=== PATIENT | male | born 1975 | race Caucasian/White ===

== ENCOUNTER 2023-07-22 10:21 | Emergency (ER) | payer OTHER, SELFPAY ==
--- NOTE | ~2023-07-22 | XR_ITS ---
EXAMINATION: XR chest 2V 07/22/2023 11:05 INDICATION: Cough for 8 days PROCEDURE: 2 view chest COMPARISON: No prior studies for comparison. FINDINGS: The lungs are clear. The cardiomediastinal silhouette is within normal limits. There are no pleural effusions. There is no pneumothorax suspected. IMPRESSION: 1: NO ACUTE CARDIOPULMONARY DISEASE. Reviewed, dictated and finalized at location L. 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
[2023-07-22 10:40] VITALS: BP 169/82; PULSE 67; RESP 16; TEMP 36.7; O2SAT 96
--- NOTE | 2023-07-22 10:54 | ED.GENADULT ---
HPI - General Adult General Chief complaint: Upper Respiratory Infection Stated complaint: Cough/Chest Pain Source: patient Mode of arrival: ambulatory Limitations: no limitations History of Present Illness HPI narrative: Patient presents for evaluation of cough for the last 8 days. Cough is productive of yellow sputum. He has associated shortness of breath, hot flashes, sore throat, diarrhea and nausea. No objective fever, chills, vomiting. His currently has similar symptoms and was diagnosed with pneumonia. He has been taking [id number] cough and cold medication. He also took 2 tablets of his 's prednisone. He smokes 1 pack per day. He states he had a coughing episode that was severe earlier this morning. He coughs so her that he was confused where he was for a moment. He has had some pleuritic chest discomfort but no chest pain otherwise. Related Data Allergies Allergy/AdvReac Type Severity Reaction Status Date / Time No Known Allergies Allergy Unverified 01/12/18 11:28 Review of Systems Review of Systems: CONSTITUTIONAL: Reports hot flashes. Denies fever, chills, or sweats. EYES: Denies visual changes, redness, or discharge. ENT: Reports sore throat. denies rhinorrhea, congestion, or otalgia. CARDIOVASCULAR: Reports pleuritic chest pain only when coughing. Denies chest pain otherwise. Denies palpitations, or edema. RESPIRATORY: Reports productive cough of yellow sputum and shortness of breath. GASTROINTESTINAL: Reports nausea and diarrhea. Denies abdominal pain and vomiting GENITOURINARY: Denies dysuria or hematuria. SKIN: Denies rash or itching. MUSCULOSKELETAL: Denies back pain, joint pain, or myalgia. NEUROLOGIC: Denies headache, numbness, dizziness, or weakness. PSYCHIATRIC: Denies anxiety or depression. [facility] Past Medical History Medical History (Updated 07/22/23 @ 11:22 by Hal Ha, CHERRI, ) No pertinent past medical history Surgical History Surgical History No pertinent past surgical history Family History Family History Mother Family history non-contributory Social History Social History Smoking packs per day: 1 Smoking cigarettes per day: 20.0 Smoking status: Current every day smoker Tobacco type: cigarettes Substance use: never Living arrangements: with family Gender identity (if verbalized by the patient): Male Sexual Orientation (if Verbalized by the Patient): Straight or Heterosexual Spiritual care concerns: No Exam Narrative: GENERAL: Well-appearing, well-nourished, and in no acute distress. HEAD: Normocephalic, atraumatic. EYES: PERRLA and EOMI. ENT: Nares clear, no rhinorrhea or epistaxis. Mucous membranes moist. Oropharynx without tonsillar hypertrophy exudate or other lesions. Bilateral TMs p[place] nonbulging NECK: Supple. No adenopathy or masses. No carotid bruits or JVD CHEST: Clear to auscultation. No respiratory distress. No wheezes rales or rhonchi HEART: Regular rate and rhythm. No murmur heard. Normal peripheral pulses. ABDOMEN: Soft, nontender, nondistended, normal active bowel sounds. EXTREMITIES: Normal range of motion. No edema. SKIN: Warm, dry, no rash. NEURO: No focal deficits. Alert and oriented x3. PSYCH: Normal mood and affect. Course Course Emergency Course: This is a 48-year-old male who presented for evaluation of sick symptoms. COVID, influenza, strep were negative. Chest x-ray negative. Recommend smoking cessation. Discharge with prednisone, albuterol, Mucinex DM. Follow up with primary provider. Go to the ER for worsening symptoms. Patient in agreement with plan care. Level of Care: Express Care Visit Vital Signs Vital signs: Vital Signs Temperature 36.7 C 07/22/23 10:40 Pulse Rate 67 07/22/23
== END 2023-07-22 11:30 | disposition home or self-care (01) ==
PROVIDERS: Emergency Provider Nurse Practitioner
DX: J06.9 Acute upper respiratory infection, unspecified (principal); F17.210 Nicotine dependence, cigarettes, uncomplicated; Z20.822 Contact with and (suspected) exposure to COVID-19
CPT/HCPCS: 71046; 87081; 87426; 87804; 87880; 99213; C9803; G0463